=== PATIENT | male | born 1950 | race Caucasian/White ===

== ENCOUNTER 2023-09-25 07:30 | Day surgery (SDC) | payer MEDICARE, OTHER, SELFPAY ==
[2023-08-27 10:23] VITALS: BMI 30.9
[2023-09-12 12:21] VITALS: BMI 31.2
--- NOTE | 2023-09-24 12:43 | P.PNAN_ITS ---
Anes - Initial Pre Proc Eval Procedure: Operation Date: 09/25/23 09:30 Proposed Procedures p Diagnostic Colonoscopy - Lucian Carmona MD Date/Time: 09/24/23 12:43 Surgeon: Lucian Carmona MD Pre Op Diagnosis: HX of colon polyps Patient Data Age: 72 Gender: M Height: 1.83 m Weight: 104.5 kg Allergies Allergy/AdvReac Type Severity Reaction Status Date / Time rosuvastatin AdvReac Intermediate Muscle Verified 09/25/23 08:14 Spasms Home Medications Medication Instructions Recorded Confirmed Type amlodipine 2.5 mg tablet 2.5 mg PO DAILY 09/12/23 09/25/23 History aspirin 81 mg tablet 81 mg PO DAILY 09/12/23 09/25/23 History atenolol 25 mg tablet 12.5 mg PO DAILY 09/12/23 09/25/23 History chlorthalidone 25 mg tablet 25 mg PO DAILY 09/12/23 09/25/23 History cholecalciferol (vitamin D3) 50 50 mcg PO DAILY 09/12/23 09/25/23 History mcg (2,000 unit) tablet coenzyme Q10 10 mg tablet 10 mg PO DAILY 09/12/23 09/25/23 History meloxicam 15 mg tablet 15 mg PO DAILY 09/12/23 09/25/23 History multivitamin with minerals-folic 1 tablet PO DAILY 09/12/23 09/25/23 History acid 0.4 mg tablet Patient hx anesthesia problems: none Family hx anesthesia problems: none Results Review: All pre-operative results and documents have been reviewed as part of the pre- operative evaluation. FORMERLY [facility], [facility]–1983 Past Medical History Medical History CAD (coronary artery disease) History of heart attack Hyperlipidemia Hypertension Surgical History Surgical History Hx of CABG Social History Social History Smoking status: Former smoker Tobacco type: cigarettes Alcohol intake: current Drinks per week: 3 Substance use type: does not use Living arrangements: with family Spiritual care concerns: No Anes - Eval Final PreProcedure Day of Procedure 09/24/23 12:43 Patient weight: obese Heart: regular rate and rhythm Lungs: clear to auscultation Airway: Mallampati scale class II Neurological: alert and oriented Last oral intake: >/= 8 hours ASA classification: III Emergent: no Anesthetic plan: proceed Anesthesia type and monitoring: general GIVS and standard monitoring Results Review: All pre-operative results and documents have been reviewed as part of the pre- operative evaluation. Informed Consent: The patient's anesthetic plan and its attendant risks and benefits were discussed with the patient/family/POA. Questions were solicited and answers provided to the satisfaction of the patient/family/POA.
--- NOTE | 2023-09-24 19:31 | PM.HPGS ---
History of Present Illness History of Present Illness Consent: Risks, benefits, and alternatives have been discussed and questions answered. Patient agrees to proceed with procedure. Chief complaint: HX of colon polyps Narrative: Tarik Simmons is a 72 year old male who is referred for colon cancer screening. Review of Systems Review of Systems: All systems reviewed & are unremarkable except as noted in HPI and below PMFSH Past Medical History Medical History CAD (coronary artery disease) History of heart attack Hyperlipidemia Hypertension Surgical History Surgical History Hx of CABG Social History Social History Smoking status: Former smoker Tobacco type: cigarettes Alcohol intake: current Drinks per week: 3 Substance use type: does not use Living arrangements: with family Spiritual care concerns: No Meds Home Medications and Allergies Home Medications Medication Instructions Recorded Confirmed Type amlodipine 2.5 mg tablet 2.5 mg PO DAILY 09/12/23 09/25/23 History aspirin 81 mg tablet 81 mg PO DAILY 09/12/23 09/25/23 History atenolol 25 mg tablet 12.5 mg PO DAILY 09/12/23 09/25/23 History chlorthalidone 25 mg tablet 25 mg PO DAILY 09/12/23 09/25/23 History cholecalciferol (vitamin D3) 50 50 mcg PO DAILY 09/12/23 09/25/23 History mcg (2,000 unit) tablet coenzyme Q10 10 mg tablet 10 mg PO DAILY 09/12/23 09/25/23 History meloxicam 15 mg tablet 15 mg PO DAILY 09/12/23 09/25/23 History multivitamin with minerals-folic 1 tablet PO DAILY 09/12/23 09/25/23 History acid 0.4 mg tablet Allergies Allergy/AdvReac Type Severity Reaction Status Date / Time rosuvastatin AdvReac Intermediate Muscle Verified 09/25/23 08:14 Spasms Exam Resp: Auscultation: clear to auscultation bilaterally Cardio: Rate: regular rate Rhythm: regular rhythm GI: GI Palp: Yes Soft to palpation and No Tenderness to palpation present (GI) Assessment and Plan Assessment and plan (1) Colon cancer screening: Code(s): Z12.11 - Encounter for screening for malignant neoplasm of colon Status: Acute Assessment and Plan: Colonoscopy with possible biopsy or polypectomy or cautery or injection of substances.
[2023-09-25 08:20] VITALS: BP 131/83; PULSE 72; RESP 18; TEMP 36.6; O2SAT 96; BMI 30.4
[2023-09-25] MEDS: LACTATED RINGERS 1,000 ML 150 ML IV CONT (08:32)
[2023-09-25 09:41] VITALS: BP 103/74; PULSE 59; RESP 17; O2SAT 98
[2023-09-25 09:51] VITALS: BP 127/67; PULSE 58; RESP 18; O2SAT 98
[2023-09-25 10:01] VITALS: BP 138/69; PULSE 58; RESP 18; O2SAT 98
--- NOTE | 2023-09-25 10:12 | WPDANESPN ---
Anes - Prog Note Post-Op Date/Time: 09/25/23 10:12 Cardiovascular status: normal Respiratory status: normal Airway patency: baseline Mental status: baseline Post-Op hydration status: normal Vital Signs: Last Vital Signs Temp 36.6 C 09/25/23 08:20 Pulse 58 L 09/25/23 10:01 Resp 18 09/25/23 10:01 BP 138/69 09/25/23 10:01 Pulse Ox 98 09/25/23 10:01 O2 Del Method Room Air 09/25/23 10:01 Pain Score (VAS): 0 I/O: Intake & Output 09/24/23 09/25/23 09/25/23 23:59 07:59 15:59 Intake Total 500 Balance 500 Post-procedural complaints: none Patient Feedback: Patient satisfied with anesthetic care. Other Findings: Patient vital signs back to baseline. Patient denies nausea and vomiting. Patient's pain under control. Patient OK for discharge.
== END 2023-09-25 10:15 | disposition home or self-care (01) ==
PROVIDERS: PCP Internal Medicine; Visit Provider Internal Medicine Gastroenterology
PROC: 0DJD8ZZ Inspection of Lower Intestinal Tract, Via Natural or Artificial Opening Endoscopic (ICD-10-PCS; CPT 45378; principal; 2023-09-25 09:30)
DX: Z12.11 Encounter for screening for malignant neoplasm of colon (principal); K57.30 Diverticulosis of large intestine without perforation or abscess without bleeding; K64.8 Other hemorrhoids
CPT/HCPCS: G0121